=== PATIENT | female | born 1995 | race African-American/Black ===

== ENCOUNTER 2024-09-20 05:43 | Emergency (ER) | payer SELFPAY ==
[~2024-09-20] VITALS: Ht 162.6 cm; Wt 68.0 kg
[2024-09-20 05:49] VITALS: O2SAT 100
[2024-09-20] MEDS: SODIUM CHLORIDE 0.9% 1,000 ML IV ONE (06:38)
[2024-09-20] MEDS: METOCLOPRAMIDE HCL 10MG/2ML VIAL IV ONE (06:46)
[2024-09-20 06:48] LABS: BASOPHILS % 0.8 % (0.0-2.0); EOSINOPHILS % 0.2 % (0.0-5.0); HEMATOCRIT. 32.8 % (36.0-48.0); HEMOGLOBIN. 10.8 g/dL (12.0-16.0); LYMPHOCYTES % 27.9 % (20.0-50.0); MEAN CORPUSCULAR HGB CONC 32.9 g/dL (31.0-37.0); MEAN CORPUSCULAR VOLUME 85.2 fL (81.0-99.0); MEAN PLATELET VOLUME 8.2 fl (7.4-10.4); MONOCYTES % 6.5 % (2.0-8.0); NEUTROPHILS % 64.6 % (40.0-76.0); PLATELET 284 x1000/uL (130-400); RED BLOOD CELL COUNT 3.86 mill/uL (4.2-5.4); WHITE BLOOD COUNT 6.1 x1000/uL (4.5-11.0)
[2024-09-20 06:57] LABS: CHLORIDE 104 mEq/L (98-107); POTASSIUM 3.3 mEq/L (3.5-5.1); SODIUM 138 mEq/L (136-145)
[2024-09-20 06:58] LABS: CALCIUM 9.7 mg/dL (8.7-10.4); CARBON DIOXIDE 23 mEq/L (21-32)
[2024-09-20 07:03] LABS: CREATININE 0.7 mg/dL (0.6-1.0); GLUCOSE 83 mg/dL (70-105); UREA NITROGEN BLOOD 7 mg/dL (9-23)
[2024-09-20 08:45] LABS: CLARITY URINE CLOUDY (CLEAR); COLOR URINE YELLOW (YELLOW); GLUCOSE URINE NEGATIVE (NEGATIVE); KETONES URINE 3+ (NEGATIVE); LEUKOCYTE ESTERASE URINE 1+ (NEGATIVE); NITRITE URINE POSITIVE (NEGATIVE); OCCULT BLOOD URINE NEGATIVE (NEGATIVE); PH URINE 6.5 (4.5-8.0); PROTEIN URINE TRACE (NEGATIVE)
[2024-09-20] MEDS ORDERED: TOPUD PO (08:58)
[2024-09-20] MEDS ORDERED: NITR-87 PO (08:58)
[2024-09-20 09:24] LABS: SQUAMOUS EPITHELIAL CELL URINE 3+ /lpf (RARE/1+)
[2024-09-20 09:25] LABS: BACTERIA URINE 4+
[2024-09-20 09:26] LABS: RBC URINE NONE SEEN /hpf (0-2)
[2024-09-20 09:33] VITALS: BP 117/70; PULSE 95; RESP 14; TEMP 36.8; O2SAT 100
== END 2024-09-20 09:34 | disposition home or self-care (01) ==
LOC: ER 05:43
DX: O21.0 Mild hyperemesis gravidarum (principal); O03.88 Urinary tract infection following complete or unspecified spontaneous abortion; O99.511 Diseases of the respiratory system complicating pregnancy, first trimester; Z3A.09 9 weeks gestation of pregnancy; Z86.73 Personal history of transient ischemic attack (TIA), and cerebral infarction without residual deficits; Z88.8 Allergy status to other drugs, medicaments and biological substances; Z98.890 Other specified postprocedural states; Z79.899 Other long term (current) drug therapy
CPT/HCPCS: 80048; 81003; 81025; 84702; 85025; 86850; 86900; 86901; 36415; 76801; 76817; 96361; 96374; 99285; J2765; J7030; Z7610 ×5; A4606